=== PATIENT | female | born 1955 | race Caucasian/White ===

== ENCOUNTER 2022-09-28 10:54 | Inpatient (IN) | payer OTHER ==
[~2022-09-28] VITALS: Ht 152.4 cm; Wt 76.7 kg
[~2022-09-28 10:54] MED LIST: Aspir 8181 MG; CEPH500 PO; CETI5; IBUP400; NAPR220
[2022-09-28 12:15] LABS: Influenza A, PCR NEGATIVE (NEGATIVE); Influenza B, PCR NEGATIVE (NEGATIVE); SARS-Cov-2 (COVID-19) PCR, MMC NEGATIVE (NEGATIVE)
[2022-09-28 12:24] LABS: Albumin, Blood 3.6 g/dL (3.4-5.0); Albumin/Globulin Ratio 0.9 (0.8-1.8); Bun/Creatinine Ratio 24.7 (12.0-20.0); Calcium, Blood 8.7 mg/dL (8.5-10.1); Creatinine, Blood 0.85 mg/dL (0.40-1.00); Potassium, Blood 4.1 mmol/L (3.5-5.5); Total Protein, Blood 7.6 g/dL (6.4-8.2)
[2022-09-28 12:25] LABS: BASOPHILS ABSOLUTE AUTO 0.04 K/mm3 (0.00-0.23); BASOPHILS PERCENT AUTO 1 % (0-2); EOSINOPHILS ABSOLUTE AUTO 0.01 K/mm3 (0.00-0.68); EOSINOPHILS PERCENT AUTO 0 % (0-6); Hemoglobin 16.5 g/dL (11.5-16.0); IMMATURE GRAN ABSOLUTE AUTO 0.02 K/mm3 (0.00-0.10); IMMATURE GRAN PERCENT AUTO 0 % (0-1); LYMPHOCYTES ABSOLUTE AUTO 0.95 K/mm3 (0.84-5.20); LYMPHOCYTES PERCENT AUTO 19 % (21-46); MONOCYTES PERCENT AUTO 6 % (4-13); Mean Corpuscular HGB 30.8 pg (26.0-34.0); Mean Corpuscular HGB Conc 31.7 g/dL (31.5-36.5); Mean Corpuscular Volume 97 fL (80-100); Mean Platelet Volume 11.9 fL (9.1-12.4); NEUTROPHILS ABSOLUTE AUTO 3.74 K/mm3 (1.96-9.15); NEUTROPHILS PERCENT AUTO 74 % (41-73); Platelet Count 149 K/mm3 (150-400); RDW Coefficient Variation 12.8 % (11.7-14.2); RDW Standard Deviation 45.4 fL (35.1-46.3); Red Blood Cell Count 5.35 M/mm3 (3.80-5.20); White Blood Cell Count 5.06 K/mm3 (4.00-11.30)
[2022-09-28 12:58] LABS: Resp Syncytial Virus, PCR POSITIVE (NEGATIVE)
[2022-09-28] MEDS ORDERED: ATOR10 PO (17:24)
--- NOTE | 2022-09-28 19:36 | NUR ---
1745 RECEIVED PT TO 326 VIA CONNOR FROM ER. PT IS A&O, PLEASANT AND CO-OP WITH CARE. INDEPENDENT IN AND TO [facility]. ADMITTED FOR RESPIRATORY FAILURE. PT GIVEN RT TX'S AND SOLUMEDROL IN ER. PLACED ON 3L O2 VIA NC; BASELINE RA. LUNGS T/O WITH CRACKLES AND INSP/EXP WHEEZES. RT IN AT THIS TIME. CALL LT IN REACH. REPORT GIVEN TO RASHAWN BOYD.
--- NOTE | 2022-09-29 04:04 | NUR ---
SHIFT SUMMARY ADMITTED FOR COUGH/SOB. FULL CODE. DROPLET PRECAUTIONS FOR RSV. RT TX'S ARE SCHEDULED, STEROIDS ARE SCHEDULED. SHE IS ON 3 LPM O2 HERE, RA @ HOME. REGULAR DIET. INDEPENDENT. A&O X4. CRACKLES AUSCULTATED IN LOWER LOBES. NO NEW CONCERNS THIS SHIFT.
[2022-09-29 08:44] LABS: BASOPHILS ABSOLUTE AUTO 0.03 K/mm3 (0.00-0.23); BASOPHILS PERCENT AUTO 0 % (0-2); EOSINOPHILS PERCENT AUTO 0 % (0-6); Hematocrit 46.2 % (33.0-51.0); Hemoglobin 15.8 g/dL (11.5-16.0); IMMATURE GRAN ABSOLUTE AUTO 0.03 K/mm3 (0.00-0.10); IMMATURE GRAN PERCENT AUTO 0 % (0-1); LYMPHOCYTES PERCENT AUTO 12 % (21-46); MONOCYTES ABSOLUTE AUTO 0.08 K/mm3 (0.16-1.47); MONOCYTES PERCENT AUTO 1 % (4-13); Mean Corpuscular HGB 31.5 pg (26.0-34.0); Mean Corpuscular HGB Conc 34.2 g/dL (31.5-36.5); Mean Platelet Volume 11.5 fL (9.1-12.4); NEUTROPHILS PERCENT AUTO 86 % (41-73); Platelet Count 170 K/mm3 (150-400); RDW Coefficient Variation 12.8 % (11.7-14.2); RDW Standard Deviation 43.6 fL (35.1-46.3); Red Blood Cell Count 5.02 M/mm3 (3.80-5.20); White Blood Cell Count 7.44 K/mm3 (4.00-11.30)
[2022-09-29 08:45] LABS: Mean Corpuscular Volume 92 fL (80-100)
--- NOTE | 2022-09-29 17:42 | NUR ---
PATIENT WAS WILLING TO TAPER DOWN ON O2 TODAY. DR. LOVE TURNED DOWN 2 LITERS. PATIENT DESATTED INTO HIGH 80'S DURING RESPIRATIRY VISIT SO 02 WAS TURNED BACK UP TO 4. PATIENT IS UPSET BECASUE OF THE HOLIDAY, AND HER DESIRE TO MAKE PIE FOR . PATIENT STATES THAT THE PROVIDER IS FINE WITH HER 02 BEING AT 90. THIS SYSTEMS PROGRAMMER WAS NOT PRESENT FOR THAT CONVERSATION. I AGREED TO TURN 02 DOWN TO 3 L, AND SEE HOW THINGS PROGRESS. WE WILL CONTINUE TO TAPER SAFE FOR THE PATIENT. PATIENT HAS NO OTHER COMPLAINTS.
[2022-09-30 05:53] LABS: BASOPHILS ABSOLUTE AUTO 0.03 K/mm3 (0.00-0.23); BASOPHILS PERCENT AUTO 0 % (0-2); EOSINOPHILS PERCENT AUTO 0 % (0-6); Hematocrit 42.6 % (33.0-51.0); Hemoglobin 14.5 g/dL (11.5-16.0); IMMATURE GRAN ABSOLUTE AUTO 0.09 K/mm3 (0.00-0.10); IMMATURE GRAN PERCENT AUTO 1 % (0-1); LYMPHOCYTES ABSOLUTE AUTO 1.42 K/mm3 (0.84-5.20); LYMPHOCYTES PERCENT AUTO 9 % (21-46); MONOCYTES ABSOLUTE AUTO 0.23 K/mm3 (0.16-1.47); MONOCYTES PERCENT AUTO 1 % (4-13); Mean Corpuscular HGB 31.3 pg (26.0-34.0); Mean Corpuscular Volume 92 fL (80-100); NEUTROPHILS ABSOLUTE AUTO 14.46 K/mm3 (1.96-9.15); NEUTROPHILS PERCENT AUTO 89 % (41-73); Platelet Count 166 K/mm3 (150-400); RDW Coefficient Variation 12.8 % (11.7-14.2); RDW Standard Deviation 43.2 fL (35.1-46.3); Red Blood Cell Count 4.64 M/mm3 (3.80-5.20); White Blood Cell Count 16.23 K/mm3 (4.00-11.30)
--- NOTE | 2022-09-30 06:10 | NUR ---
Patient slept most of the night. Occasionally having coughing fits, but maintained her sats. Titrated down from 3L to 0.5L NC and patient is maintaining 92%. VSS. New sputum sample requested as previous sample was all upper airway candelario. BP stable, denies CP/pressure. No acute events.
[2022-09-30 06:25] LABS: Bun/Creatinine Ratio 30.7 (12.0-20.0); Calcium, Blood 8.8 mg/dL (8.5-10.1); Creatinine, Blood 0.91 mg/dL (0.40-1.00); Potassium, Blood 3.9 mmol/L (3.5-5.5)
[2022-09-30] MEDS ORDERED: ALBU90OI INH (11:53)
[2022-09-30] MEDS ORDERED: Prednisone10 MG PO (11:55)
== END 2022-09-30 13:49 | disposition home or self-care (01) | DRG 189 ==
LOC: ER 10:54 → MEDS 16:01
PROVIDERS: Family Medicine; Physician Assistant; ADMIT Hospitalist
DX: J96.01 Acute respiratory failure with hypoxia (principal); J45.901 Unspecified asthma with (acute) exacerbation; B97.4 Respiratory syncytial virus as the cause of diseases classified elsewhere; Z20.822 Contact with and (suspected) exposure to COVID-19; F17.210 Nicotine dependence, cigarettes, uncomplicated; R79.89 Other specified abnormal findings of blood chemistry; Z88.5 Allergy status to narcotic agent; Z88.8 Allergy status to other drugs, medicaments and biological substances; Z90.710 Acquired absence of both cervix and uterus; Z79.82 Long term (current) use of aspirin; Z79.899 Other long term (current) drug therapy
CPT/HCPCS: 0241U; 36415; 71046; 80048; 80053; 83880; 84484; 85025; 85379; 87070; 87147; 87205; 93005; 93010; 94640; 94644; 94664; 94760; 94762; 96372; 96376; G0378; J1650; J2930